=== PATIENT | male | born 1955 | race Caucasian/White ===

== ENCOUNTER 2018-11-12 06:57 | Day surgery (SDC) | payer BC ==
[2018-11-11 12:52] VITALS: BMI 26.4
[2018-11-12 08:14] VITALS: BP 112/86; TEMP 99.8
--- NOTE | 2018-11-12 09:20 | CT ---
FCT LUMBAR SPINE WITH CONTRAST CT LUMBAR MYELOGRAM CLINICAL HISTORY: Lumbar stenosis, low back pain, lumbar radiculopathy and lower extremity weakness. Reference myelogram report for procedural details. FINDINGS: There is posterior metallic fusion spanning L3-S1 with bilateral pedicle screws and bilateral vertica l interconnecting rods. No perihardware lucency. Intradiscal prostheses are present at L3-4, L4-5 and L5-S1. There is generalized osseous demineralization. There is incidental note of ectasia of the abdominal aorta and iliac arteries, with diffuse vascular disease, incompletely evaluated. Colonic diverticulosis is partially visualized. There is a circumscribed fat density focus of the left diaphragmatic ismael that may relate to a small lipoma; however, this is incompletely visualized. L5-S1: Posterior decompression with a patent, contrast opacified thecal sac. There is prominent osseo us hypertrophy about each postoperative facet region and severe osseous compromise of the left neural foramen on the basis of postoperative osseous hypertrophy. There is moderate osseous compromise of t he right neural foramen. L4-5: Mild central canal narrowing present due to osseous hypertrophy of the postoperative facets as well as disc osteophyte. There is trace spondylolisthesis. Mild osseous compromise of each neural for amen is present. L3-4: There is anterior location of the right aspect of the interdiscal device which projects anterio r to the vertebral body margins, at the right lateral aspect. Moderate narrowing of the posterior asp ect of the thecal sac is present due to prominent osseous hypertrophy of the facet joints. There is mild effacement of the ventral thecal sac due to broad-based osteophyte ridge. Mild narrowing of each neural foramen is present. L2-3: Trace retrolisthesis with associated broad-based disc osteophyte results in moderate central ca nal stenosis. There is mild narrowing of each neural foramen. L1-2: Mild narrowing of central canal due to broad-based disc bulge. No significant foraminal stenosi s. IMPRESSION: Multilevel degenerative change as outlined above. Findings are most pronounced involving the left L5-S1 neural foramen which is severely stenotic due to postoperative osseous hypertrophy. Additional findings are detailed above. Transcribed Date/Time: 11/12/2018 9:34 AM
--- NOTE | 2018-11-12 09:21 | RAD ---
CERVICAL AND LUMBAR SPINE MYELOGRAM INDICATION: Lumbar stenosis and cervical spondylosis. PROCEDURE: After informed consent had been obtained, the patient was escorted to the interventional suite and pl aced on the procedural table. Blow Molding Machine Operator imaging was performed. The patient was placed into a prone posi tion. Skin on the low back was then prepped and draped in the standard sterile fashion and topical a nd regional soft tissue anesthesia was achieved with 1% lidocaine and sodium bicarbonate. L3-4 post erior interlaminar approach was selected, and a 22 gauge needle was uneventfully advanced into the th ecal sac with clear color CSF. Subsequently, 9 cc Isovue-M 300 was instilled into the thecal sac und er real time fluoroscopy. Appropriate opacification of thecal sac demonstrated with imaging stored f or confirmation. The needle was then removed from the patient. The patient tolerated the procedure well and was then transferred to CT to undergo subsequent myelogram. Reference separate report for f ull details. FLUORO DATA: 0.4 minutes intermittent fluoroscopy. 56 mGy*^m2. IMPRESSION: Technically successful cervical and lumbar myelogram as detailed above. POS: DAVID
--- NOTE | 2018-11-12 09:51 | CT ---
FPOSTMYELOGRAM CERVICAL SPINE CT: HISTORY: Cervical spondylosis. Cervical radiculopathy. COMPARISON: None. TECHNIQUE: Cervical spine CT is performed in the axial plane. Three-dimensional reformatted images are submitted . FINDINGS: No craniocervical dissociation. Appropriate alignment of the lateral masses of C1-C2. No prevertebral soft tissue swelling. Upper mediastinum is unremarkable. Emphysematous changes in the lung apices. C2-C3: Broad-based discussed by complex without significant central canal stenosis. Mild right forami nal narrowing. Left neural foramen is patent. C3-C4: Broad-based disc osteophyte complex abuts the thecal sac. No significant central canal stenosi s. Bilateral uncovertebral hypertrophy and left greater than right facet hypertrophy. Resultant moder ate right and moderate severe left foraminal narrowing. C4-C5: Broad-based discussed by complex abuts the thecal sac. Mild central canal stenosis. Moderate b ilateral uncovertebral hypertrophy as well as left greater than right facet hypertrophy result in mod erate right and severe left foraminal narrowing. C5-C6: Broad-based disc osteophyte complex effaces the ventral subarachnoid space. Mild mass effect u ronan the cervical cord. Moderate central canal stenosis. Hypertrophic changes and bilateral uncoverteb ral joint and bilateral facet hypertrophy result in moderate bilateral foraminal narrowing. There is left greater than right facet hypertrophy. C6-C7: Broad-based disc osteophyte complex as well as ligamentum flavum thickening result in moderate central canal stenosis. Moderate bilateral uncovertebral hypertrophy and hypertrophic changes of the facets result in moderate right and moderate to severe left foraminal narrowing. C7-T1: No high-grade central canal stenosis or high-grade neural foraminal narrowing. IMPRESSION: 1. Degenerative changes of the cervical spine as detailed above. There is significant bilateral barrera inal narrowing at multiple levels. 2. Left greater than right facet hypertrophy at multiple levels. 3. Moderate central canal stenosis at C6-C7 and C5-C6. Transcribed Date/Time: 11/12/2018 10:20 AM
== END 2018-11-12 10:05 | disposition home or self-care (01) ==
LOC: RAD 06:57 → EDSTATUS 08:00 → RAD 10:05
PROVIDERS: ATTEND Neurological Surgery
PROC: B01B1ZZ Fluoroscopy of Spinal Cord using Low Osmolar Contrast (ICD-10-PCS; principal; 2018-11-12)
DX: M47.22 Other spondylosis with radiculopathy, cervical region (principal); M48.02 Spinal stenosis, cervical region; M47.12 Other spondylosis with myelopathy, cervical region; M48.061 Spinal stenosis, lumbar region without neurogenic claudication; M47.26 Other spondylosis with radiculopathy, lumbar region; M47.16 Other spondylosis with myelopathy, lumbar region; I10 Essential (primary) hypertension; M19.90 Unspecified osteoarthritis, unspecified site; E78.00 Pure hypercholesterolemia, unspecified; G89.29 Other chronic pain; M54.9 Dorsalgia, unspecified; Z79.82 Long term (current) use of aspirin; Z79.899 Other long term (current) drug therapy; Z88.6 Allergy status to analgesic agent; Z88.8 Allergy status to other drugs, medicaments and biological substances
CPT/HCPCS: 62305; 72126; 72132

== ENCOUNTER 2020-01-23 10:01 | Outpatient (CLI) | payer MEDICARE, BC ==
--- NOTE | 2020-01-23 16:49 | MRI ---
CERVICAL SPINE MRI WITHOUT IV CONTRAST: History: Cervical radiculopathy. Comparison: Cervical spine CT with post myelogram contrast 11-12-18. FINDING: The visualized brain appears unremarkable. Visualized soft tissues of the neck appear unremarkable. There are some mixed, including some type I implant changes at C5-6 and C6-7. C2-3: Mild disc osteophyte with mild to moderate right foraminal stenosis. C3-4: Diffuse osteophyte with moderate bilateral foraminal stenosis and mild thinning of the ventral lateral recesses. C4-5: Diffuse disc osteophytes with thinning of the ventral lateral recesses and moderate to severe b ilateral foraminal stenosis. C5-6: Severe disc osteophyte changes with moderate central canal and severe lateral recess stenosis w ith some indention of the ventral cord with severe bilateral foraminal stenosis. C6-7: Severe diffuse disc osteophytosis, more marked on the right side, with moderate central canal a nd moderate to severe lateral recess stenosis, worse on the right side, with bilateral foraminal sten osis, severe on the right and moderate to severe on the left. C7-T1: Mild left foraminal stenosis. No evidence for spinal cord mass. IMPRESSION: Multilevel variable severity canal, lateral recess, and foraminal stenosis as above. Little change in the appearance when compared to the prior CT scan 11-12-18. POS: RRE
== END 2020-01-23 10:02 | disposition home or self-care (01) ==
LOC: TBSIIMAG 10:01
PROVIDERS: ATTEND Neurological Surgery
DX: M54.12 Radiculopathy, cervical region (principal); M48.02 Spinal stenosis, cervical region; M48.05 Spinal stenosis, thoracolumbar region
CPT/HCPCS: 72141

== ENCOUNTER 2024-05-27 16:32 | Emergency (ER) | payer BC, MEDICARE ==
[~2024-05-27 16:32] MED LIST: Iopamidol-370 76% 500 ML MDV (1 ML CHARGE) ONE
[2024-05-27 17:46] LABS: #Basophils 0.09 10x3/uL (0.0-0.2); %Basophils 0.6 % (0.0-1.0); %Eosinophils 1.9 % (0.0-10.0); %Lymphocytes 16.1 % (21.0-51.0); %Monocytes 10.6 % (0.0-10.0); %Neutrophils 69.6 % (42.0-75.0); Hematocrit 31.6 % (42.0-52.0); Hemoglobin 10.6 g/dL (14.0-18.0); Mean Corpuscular HGB CONC 33.5 g/dL (32.0-36.0); Mean Corpuscular Hemoglobin 30.3 pg (27.0-31.0); Mean Corpuscular Volume 90.3 fL (78.0-98.0); Mean Platelet Volume 9.5 fL (7.4-10.4); Platelet Count 591 10x3/uL (130-400); RBC Distribution Width 13.7 % (11.5-14.5)
[2024-05-27] MEDS ORDERED: Lidocaine 2% 6 ML (Jelly) SYR ONE (18:05)
[2024-05-27 18:17] LABS: Bacteria/HPF None Seen HPF (None Seen); Bilirubin Negative (Negative); Blood, Urine 1+ (Negative); CAUTI Indications for Culture Pelvic or flank pain; Clarity Clear (Clear); Glucose, Urine (Dipstick) Normal (Negative); Ketone, Urine Negative (Negative); Leukocyte Negative Leu/uL (Negative); Nitrite Negative (Negative); Protein, Urine (Dipstick) Negative (Neg-Trace); Specific Gravity, Urine 1.003 (1.002-1.036); Squamous Epithelial 0-3 HPF (0-3); Urobilinogen Normal mg/dL (Less than 2)
[2024-05-27 18:22] LABS: ALT (SGPT) 19 U/L (8-55); AST (SGOT) 24 U/L (5-34); Albumin 2.6 g/dL (3.4-4.8); Alkaline Phosphatase 117 U/L (40-110); Anion Gap 14 mmol/L (10-20); BUN (Urea Nitrogen) 27 mg/dL (8.4-25.7); Bilirubin, Total 0.2 mg/dL (0.2-1.2); Calc. Creatinine Clearance 0 mL/min (70-130); Carbon Dioxide 23 mmol/L (23-31); Chloride 104 mmol/L (98-107); Estimated GFR 37; Globulin 4.9 g/dL (2.4-3.5); Glucose 108 mg/dL (80-115); Potassium 4.9 mmol/L (3.5-5.1); Protein, Total 7.5 g/dL (5.8-8.1); Sodium 136 mmol/L (136-145)
[2024-05-27 18:57] LABS: Urine Culture Reflex No No
[2024-05-27] MEDS ORDERED: Ondansetron PF 4 MG/2 ML Vial ONE (20:01)
[2024-05-27] MEDS ORDERED: Morphine 4 MG/ML VIAL ONE (20:01)
[2024-05-27] MEDS ORDERED: fentaNYL 50 mcg/mL 1 mL Vial ONE (20:21)
== END 2024-05-27 21:26 | disposition home or self-care (01) ==
LOC: ERS 16:32
DX: N17.9 Acute kidney failure, unspecified (principal); R33.9 Retention of urine, unspecified; R18.8 Other ascites; I10 Essential (primary) hypertension; E78.00 Pure hypercholesterolemia, unspecified; F17.210 Nicotine dependence, cigarettes, uncomplicated; F17.290 Nicotine dependence, other tobacco product, uncomplicated; Z79.899 Other long term (current) drug therapy
CPT/HCPCS: 51702; 51798; 74177; 80053; 81001; 85025; 96374; J2272; J2405; J3010; Q9967

== ENCOUNTER 2024-05-29 15:47 | Emergency (ER) | payer BC, MEDICARE ==
[2024-05-29 16:38] LABS: #Basophils 0.09 10x3/uL (0.0-0.2); %Basophils 0.7 % (0.0-1.0); %Eosinophils 3.8 % (0.0-10.0); %Lymphocytes 18.9 % (21.0-51.0); %Monocytes 7.6 % (0.0-10.0); %Neutrophils 68.1 % (42.0-75.0); Hematocrit 33.7 % (42.0-52.0); Hemoglobin 10.9 g/dL (14.0-18.0); Mean Corpuscular HGB CONC 32.3 g/dL (32.0-36.0); Mean Corpuscular Hemoglobin 30.2 pg (27.0-31.0); Mean Corpuscular Volume 93.4 fL (78.0-98.0); Mean Platelet Volume 9.4 fL (7.4-10.4); Platelet Count 602 10x3/uL (130-400); RBC Distribution Width 13.5 % (11.5-14.5); Red Blood Cell (RBC) Count 3.61 mill/uL (4.70-6.10)
[2024-05-29 16:56] LABS: Bacteria/HPF None Seen HPF (None Seen); Bilirubin Negative (Negative); Blood, Urine 3+ (Negative); CAUTI Indications for Culture Acute Hematuria; Clarity Turbid (Clear); Glucose, Urine (Dipstick) Normal (Negative); Ketone, Urine Negative (Negative); Leukocyte 75 Leu/uL (Negative); Nitrite Negative (Negative); Protein, Urine (Dipstick) 200 mg/dL (Neg-Trace); RBC/HPF Greater than 50 HPF (0-3); Specific Gravity, Urine 1.017 (1.002-1.036); Squamous Epithelial None Seen HPF (0-3); Urobilinogen Normal mg/dL (Less than 2); pH, Urine 5.5 (5.0-9.0)
[2024-05-29 16:57] LABS: Urine Culture Reflex Yes Yes
[2024-05-29 16:58] LABS: ALT (SGPT) 18 U/L (8-55); AST (SGOT) 21 U/L (5-34); Albumin 2.4 g/dL (3.4-4.8); Alkaline Phosphatase 107 U/L (40-110); Anion Gap 12 mmol/L (10-20); BUN (Urea Nitrogen) 10 mg/dL (8.4-25.7); Bilirubin, Total 0.1 mg/dL (0.2-1.2); Calc. Creatinine Clearance 0 mL/min (70-130); Carbon Dioxide 23 mmol/L (23-31); Chloride 106 mmol/L (98-107); Estimated GFR 87; Globulin 4.3 g/dL (2.4-3.5); Glucose 197 mg/dL (80-115); Potassium 3.7 mmol/L (3.5-5.1); Protein, Total 6.7 g/dL (5.8-8.1); Sodium 137 mmol/L (136-145)
== END 2024-05-29 18:08 | disposition home or self-care (01) ==
LOC: ERS 15:47
DX: N39.0 Urinary tract infection, site not specified (principal); I10 Essential (primary) hypertension; E78.00 Pure hypercholesterolemia, unspecified; F17.290 Nicotine dependence, other tobacco product, uncomplicated; F17.210 Nicotine dependence, cigarettes, uncomplicated; Z79.899 Other long term (current) drug therapy
CPT/HCPCS: 36415; 74177; 80053; 81001; 83605; 85025; 87086; Q9967

== ENCOUNTER 2024-06-06 10:02 | Emergency (ER) | payer BC, MEDICARE ==
[2024-06-06 11:12] LABS: #Basophils 0.08 10x3/uL (0.0-0.2); %Basophils 0.8 % (0.0-1.0); %Eosinophils 4.7 % (0.0-10.0); %Lymphocytes 26.7 % (21.0-51.0); %Neutrophils 55.8 % (42.0-75.0); Hematocrit 35.4 % (42.0-52.0); Hemoglobin 11.5 g/dL (14.0-18.0); Mean Corpuscular HGB CONC 32.5 g/dL (32.0-36.0); Mean Corpuscular Hemoglobin 30.5 pg (27.0-31.0); Mean Corpuscular Volume 93.9 fL (78.0-98.0); Mean Platelet Volume 9.3 fL (7.4-10.4); Platelet Count 449 10x3/uL (130-400); RBC Distribution Width 14.5 % (11.5-14.5); Red Blood Cell (RBC) Count 3.77 mill/uL (4.70-6.10)
[2024-06-06] MEDS ORDERED: Iopamidol-370 76% 500 ML MDV (1 ML CHARGE) ONE (11:35)
[2024-06-06 11:36] LABS: ALT (SGPT) 15 U/L (8-55); AST (SGOT) 20 U/L (5-34); Alkaline Phosphatase 117 U/L (40-110); Anion Gap 13 mmol/L (10-20); BUN (Urea Nitrogen) 8 mg/dL (8.4-25.7); Bilirubin, Total 0.2 mg/dL (0.2-1.2); Calc. Creatinine Clearance 0 mL/min (70-130); Calcium 9.2 mg/dL (7.8-10.44); Carbon Dioxide 25 mmol/L (23-31); Chloride 106 mmol/L (98-107); Estimated GFR 92; Glucose 101 mg/dL (80-115); Potassium 3.6 mmol/L (3.5-5.1); Sodium 140 mmol/L (136-145)
== END 2024-06-06 12:30 | disposition home or self-care (01) ==
LOC: ERS 10:02
DX: R33.9 Retention of urine, unspecified (principal); R10.9 Unspecified abdominal pain; I10 Essential (primary) hypertension; F17.210 Nicotine dependence, cigarettes, uncomplicated; F17.290 Nicotine dependence, other tobacco product, uncomplicated; E78.2 Mixed hyperlipidemia; Z79.899 Other long term (current) drug therapy; Z85.828 Personal history of other malignant neoplasm of skin
CPT/HCPCS: 74178; 80053; 83735; 85025; Q9967